=== PATIENT | female | born 1985 | race Caucasian/White ===

== ENCOUNTER 2019-09-07 20:23 | Emergency (ER) | payer BC ==
[~2019-09-07] VITALS: Ht 165.1 cm; Wt 85.7 kg
[2019-09-07 20:55] VITALS: BP 123/90
--- NOTE | 2019-09-07 21:26 | PHYS DOC ---
Adult General Chief Complaint Chief Complaint: DENTAL PROBLEM HPI HPI Patient is a 34 year old female who presents with lower jaw pain. She states initially it started on the left and when she woke up it included her entire jaw. She is not had any recent tooth pain or work. She states she has good den tition. She noticed her face was swollen today. Pain is significantly worse of her teeth touch at all. She is not able to eat. She states this is the worst pain she is ever had. She is nauseous due to the pain. She denies any vomiting. She has not had any fever. Review of Systems Review of Systems General: Denies fever, chills, sweats, fatigue Eyes: Denies drainage, blurred vision, eye redness HENT: Denies rhinorrhea, sore throat, earache Respiratory: Denies cough, shortness of breath, wheezing Cardiac: Denies edema, palpitations, chest pain GI: Denies abdominal pain, Nausea, vomiting MSK: Denies back pain, neck pain Skin: Denies rash, jaundice Neuro: Denies headache, dizziness Psychiatric: Denies SI/HI Current Medications Current Medications Current Medications Medications (Trade) Dose Ordered Sig/Linda Start Time Stop Time Status Last Admin Dose Admin Oxycodone/ Acetaminophen (Percocet 5/325) 1 tab 1X ONCE 09/07/19 21:30 09/07/19 21:31 Allergies Allergies Allergies Coded Allergies Type Severity Reaction Last Updated Verified enoxaparin Allergy Unknown 09/07/19 Yes heparin Allergy Unknown 09/07/19 Yes warfarin Allergy Unknown 09/07/19 Yes Physical Exam Physical Exam General: Awake, alert, NAD. Well Nourished, well hydrated. Cooperative HEENT: Atraumatic, EOMI, PERRL, airway patent, moist oral mucosa, dentition normal, gums normal, healthy gingiva Neck: Supple, trachea midline Respiratory: CTA bilaterally, normal effort, no wheezing/crackles CV: RRR, no murmur, cap refill <2 GI: Soft, nondistended, nontender, no masses MSK: No obvious deformities Skin: Warm, dry, intact Neuro: A&O x3, speech NL, sensory and motor grossly intact, no focal deficits Psych: Normal affect, normal mood, not suicidal or homicidal EKG EKG [] Radiology/Procedures Radiology/Procedures [] Course & Med Decision Making Course & Med Decision Making Pertinent Labs and Imaging studies reviewed. (See chart for details) Patient is 34-year-old female presents to the emergency room with jaw pain and mild swelling to the face. She does not appear to have facial cellulitis. Her teeth appear to be normal. It is unclear at this time what is causing the swelling and significant pain. CT will be ordered to evaluate for a deep tissue infection. CT is negative. Patient continues to have pain. It is possible she is starting to have an dental infx. Will place her on Augmentin and have her follow up. Patient's test results and vitals while in the ED were fully reviewed and discussed with the patient. Patient is stable and at this time does not need admission to the hospital. We have discussed strict return precautions and the importance of following up with their Primary Care Physician. Patient stated understanding and was given an opportunity to ask any questions. Patient is in agreement with plan. Dragon Disclaimer Dragon Disclaimer This electronic medical record was generated, in whole or in part, using a voice recognition dictation system. Departure Departure: Impression: Primary Impression: Pain, dental Disposition: 01 HOME/RESIDENCE PRIOR TO ADM Condition: STABLE Referrals: JAKE HARRISON (PCP) Patient Instructions: Dental Pain Scripts Acetaminophen With Codeine (TYLENOL WITH CODEINE #3 TABLET) 1 Each Tablet 1 TAB PO PRN BID PRN for pain MDD 2 Tablet(s) for 5 Days, #8 TAB 0 Refills Prov: MERY PARDO MD 09/07/19 Amoxicillin/Potassium Clav (AUGMENTIN 875-125 TABLET) 1 Each Tablet 1 TAB PO BID for dental for 7 Days, #14 TAB 0 Refills Prov: MERY PARDO MD 09/07/19 Justification of Admission: Justification of Admission: Justification of Admission Dx: No MERY PARDO MD Sep 07, 2019 21:26
[2019-09-07] MEDS: oxyCODONE/APAP 5/325 1 TAB TABLET PO ONE (21:37)
--- NOTE | 2019-09-07 22:02 | RAD ---
Exam: CT maxillofacial without contrast INDICATION: Facial swelling TECHNIQUE: Sequential axial images through the face obtained without IV contrast. Sagittal and coronal reformatted images were reconstructed from the axial data and reviewed. Comparisons: None FINDINGS: Visualized intracranial structures are unremarkable. Globes and orbital contents are normal. Visualized portions of the paranasal sinuses and mastoid air cells are well-pneumatized. No significant periodontal disease is noted. IMPRESSION: Unremarkable evaluation of the face. No focal fluid collection identified. Exposure: One or more of the following in the visualized dose reduction techniques were utilized for this examination: 1. Automated exposure control 2. Adjustment of the MA and/or KV according to patient size 3. Use of iterative of reconstructive technique Electronically signed by: Rohith Kaba MD (09/07/2019 9:59 PM) [id number]
[2019-09-07] MEDS ORDERED: ACET-704 PO (22:12)
[2019-09-07] MEDS ORDERED: AMOX1TAB61 PO (22:12)
[2019-09-07] MEDS ORDERED: LIDOCAINE 2% VISCOUS 15 ML SOLUTION. ONE (22:21)
[2019-09-07] MEDS: LIDOCAINE 2% VISCOUS 15 ML SOLUTION. SWSW ONE (22:26)
[2019-09-07] MEDS: ACETAMINOPHEN/CODEINE 300/30MG TABLET PO ONE (22:45)
== END 2019-09-07 20:38 | disposition home or self-care (01) ==
LOC: ER 20:23
DX: K08.89 Other specified disorders of teeth and supporting structures (principal); R68.84 Jaw pain; R22.0 Localized swelling, mass and lump, head; Z88.8 Allergy status to other drugs, medicaments and biological substances
CPT/HCPCS: 70486; 99284-25